=== PATIENT | female | born 2000 | race Caucasian/White ===

== ENCOUNTER 2020-03-30 07:44 | Outpatient (CLI) | payer OTHER, SELFPAY | END 2020-03-30 07:45 | disposition home or self-care (01) | PROVIDERS: PCP Family Medicine; Visit Provider Otolaryngology | DX: H93.19 Tinnitus, unspecified ear (principal) | CPT/HCPCS: 92557; 92567 ==

== ENCOUNTER 2020-05-13 00:53 | Outpatient (CLI) | payer OTHER, SELFPAY ==
[2020-05-13 18:32] LABS: SARS-CoV-2 RNA PCR Negative
== END 2020-05-13 00:54 | disposition home or self-care (01) ==
LOC: ANHCOVIDDT 00:53
PROVIDERS: PCP Family Medicine; Visit Provider Otolaryngology
DX: Z01.812 Encounter for preprocedural laboratory examination (principal); Z20.828 Contact with and (suspected) exposure to other viral communicable diseases
CPT/HCPCS: 87635; C9803; U0003

== ENCOUNTER 2020-05-16 00:26 | Day surgery (SDC) | payer OTHER, SELFPAY ==
[2020-05-01 13:40] VITALS: BMI 21.7
[2020-05-16] VITALS (8 sets, daily range): BP systolic 90–118; BP diastolic 40–72; PULSE 52–89; RESP 12–18; TEMP 36.1–36.3; O2SAT 100
--- NOTE | 2020-05-16 05:59 | PM.HPGS ---
History of Present Illness History of Present Illness Consent: Risks, benefits, and alternatives have been discussed and questions answered. Patient agrees to proceed with procedure. 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 is admitted for elective tympanoplasty on the left side Review of Systems Review of Systems: All systems reviewed & are unremarkable except as noted in HPI and below PMFSH Family History Family History Other Family history of kidney disease Family history of rheumatoid arthritis Family history of thyroid disease Hypertension Social History Social History Smoking status: Never smoker Second hand tobacco smoke exposure: No Alcohol intake: never Substance use: never Substance use type: does not use Living arrangements: with family Additional occupation/education comments: Student Gender identity (if verbalized by the patient): Female Spiritual care concerns: No Meds Home Medications and Allergies Home Medications Medication Instructions Recorded Confirmed Type No Home Medications 05/01/20 05/01/20 History Allergies Allergy/AdvReac Type Severity Reaction Status Date / Time No Known Allergies Allergy Verified 05/01/20 13:41 Assessment and Plan Additional Plan Plan is a left tympanoplasty
--- NOTE | 2020-05-16 05:59 | WPDHPUPDATE1 ---
History and Physical Update Update Date/Time: 05/16/20 05:59 History and Physical has been reviewed, including an updated exam of the patient. There are NO changes in the patient's condition. Risks, benefits, and alternatives have been discussed and questions answered. Patient agrees to proceed with procedure.
[2020-05-16] MEDS: LACTATED RINGERS 1,000 ML 30 ML IV CONT (07:30)
[2020-05-16] MEDS: ACETAMINOPHEN 500 MG TABLET 1000 MG PO (07:38)
--- NOTE | 2020-05-16 08:24 | WPDANESEPPF ---
Anes - Initial Pre Proc Eval Procedure: Operation Date: 05/16/20 09:00 Proposed Procedures p Left Tympanoplasty - Glen Quintanilla MD Date/Time: 05/16/20 08:24 Surgeon: Glen Quintanilla MD Pre Op Diagnosis: left TM perforation Patient Data Age: 19 Gender: F Height: 5 ft 8 in Weight: 63 kg Last Vital Signs Temp 36.3 C L 05/16/20 07:46 Pulse 89 05/16/20 07:46 Resp 16 05/16/20 07:46 BP 118/57 L 05/16/20 07:46 Pulse Ox 100 05/16/20 07:46 Allergies Allergy/AdvReac Type Severity Reaction Status Date / Time No Known Allergies Allergy Verified 05/16/20 07:20 Home Medications Medication Instructions Recorded Confirmed Type No Home Medications 05/01/20 05/16/20 History Patient hx anesthesia problems: none Family hx anesthesia problems: none PMFSH Surgical History Surgical History (Updated 05/16/20 @ 08:27 by Shane Briceno MD) H/O myringotomy Family History Family History Other Family history of kidney disease Family history of rheumatoid arthritis Family history of thyroid disease Hypertension Social History Social History Smoking status: Never smoker Second hand tobacco smoke exposure: No Alcohol intake: never Substance use: never Substance use type: does not use Living arrangements: with family Additional occupation/education comments: Student Gender identity (if verbalized by the patient): Female Spiritual care concerns: No Anes - Eval Final PreProcedure Day of Procedure 05/16/20 08:24 Patient weight: normal Heart: regular rate and rhythm Lungs: clear to auscultation Airway: Mallampati scale class II, special considerations poor opening and other (clicking and popping of TMJ) Neurological: alert and oriented Last oral intake: >/= 8 hours ASA classification: I Emergent: no Anesthetic plan: proceed Anesthesia type and monitoring: general LMA and standard monitoring Informed Consent: The patient's anesthetic plan and its attendant risks and benefits were discussed with the patient/family/POA. Questions were solicited and answers provided to the satisfaction of the patient/family/POA.
[2020-05-16] MEDS: LIDO 1%/EPINEPHRINE 1:100,000 20 ML VIAL 3 ML INFILTRATE (08:48)
[2020-05-16] MEDS: CIPROFLOXACIN HCL 0.3% OP SOLN 2.5 ML BTL 4 DROP EACH EAR (08:49)
[2020-05-16] MEDS: NEOMYCIN/POLYMYXIN B/PRAMOXINE 15 GM CREAM 1 APPLIC TOPICAL (08:50)
--- NOTE | 2020-05-16 09:18 | PM.PROC ---
Procedure Note - Detailed Date of procedure: 05/16/20 Pre-op diagnosis: left TM perforation Tympanoplasty Postoperative Instructions Dr. Quintanilla [facility] This is an information sheet to tell you some things to expect and some things not to expect when you leave the hospital after having ear surgery. Please follow any specific instructions Dr. Quintanilla has given you. 1. Expect some pain in the operated area after surgery. This should be no worse than the pain experienced at the hospital, however you have been given pain medication and if you experience pain, please use the medications as prescribed. 2. Expect some unsteadiness. This is transient and should be gone by the time of your postoperative visit to the doctor?s office. It should be no worse than the unsteadiness experienced while in the hospital. If you experience a marked increase in unsteadiness, or dizziness, you should contact the doctor?s office at once. 3. Expect some swelling of your eyelids on the operated side if a head dressing has been applied. This is normal and secondary to the head dressing and will go away with removal of the dressing in 24 hours. Please remove ear shield in 24 hours. 4. If you must sneeze, sneeze with the mouth open. Do not close the mouth and sneeze or pinch your nose and stifle the sneeze, as this may ?blow? the patch off the eardrum. 5. Take antibiotic given to you until it is entirely gone (if an antibiotic has been prescribed to you). 6. There may be some soiling of the bandage-do not be alarmed unless it soaks and dampens the outside! 7. Keep the operated ear dry. You may use a shower cap to keep water away from the ear. 8. Do not expect to hear out of the operated ear right away. Return of hearing may take up to 4-8 weeks. 9. Do not use any aspirin or aspirin containing products, No Advil, No Aleve, No Ibuprofen, No Motrin or Motrin type products for two weeks after surgery. 10. Do not undergo strenuous activity until your first postoperative visit to the doctor?s office and the doctor has stated that you may do so. 11. Follow up with Dr. Quintanilla in 1 week. Revised 01/27 Post-op diagnosis: same Procedure performed: Patient was prepped and draped fashion general anesthesia the tragus was injected xylocaine with Adrenalin and incision was made and a tragal perichondrial graft taken hemostasis was obtained with bipolar cautery and closed with 4 0 chromic the ear was inspected a small anterior perforation was noted packed with Surgicel the tragal perichondrium placed in underlay fashion the ledges of this perforation packed with Gelfoam patient awakened returned to recovery in good condition Description of procedure: Patient prepped and draped, the ear was inspected inspection revealed a [] perforation. The vascular strip was injected with xylocaine with adrenaline. Postauricular region was injected with xylocaine with adrenaline and incision was made and temporalis Parres fascia graft harvested closed with Monocryl and glue consent and the bed of the fascia graft was crushed and dried the ear was inspected edges of the perforation strip of squame with a small straight pick. The graft placed in an underlay fashion after packing the middle ear with Surgicel. The patient awakened returned to recovery in good condition Anesthesia:
[2020-05-16] MEDS: ONDANSETRON INJ 4 MG/2 ML VIAL IV PUSH (09:51)
== END 2020-05-16 11:20 | disposition home or self-care (01) ==
PROVIDERS: PCP Family Medicine; Visit Provider Otolaryngology
PROC: (CPT 69631; principal; 2020-05-16 09:00)
DX: H72.92 Unspecified perforation of tympanic membrane, left ear (principal)
CPT/HCPCS: 69631; 21235; 87635; A9270; C9803; J0171; J1100; J2250; J2405; J2704; J3010; J7120; U0003

== ENCOUNTER 2020-12-12 10:02 | Emergency (ER) | payer OTHER, SELFPAY ==
[2020-12-12 10:10] VITALS: BP 100/62; PULSE 106; RESP 16; TEMP 37.2; O2SAT 99
[2020-12-12 10:18] VITALS: BP 100/62; PULSE 106; RESP 16; TEMP 37.2; O2SAT 99
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
== END 2020-12-12 10:34 | disposition home or self-care (01) ==
PROVIDERS: Emergency Provider Nurse Practitioner; PCP Family Medicine
DX: H73.92 Unspecified disorder of tympanic membrane, left ear (principal); M54.2 Cervicalgia
CPT/HCPCS: 99213; G0463

== ENCOUNTER → 2022-09-18 08:14 | Outpatient (CLI) | payer OTHER, SELFPAY ==
--- NOTE | ~2022-09-18 | CT_ITS ---
EXAMINATION: CT brain wo/w con DATE: 09/18/2022 08:47 INDICATION: Vision changes. Migraine headache. TECHNIQUE: Computed tomography (CT) of the head was performed without and with 100 mL Omnipaque 350 i ntravenous contrast. The mA was adjusted according to patient size. Iterative reconstruction techniqu e was employed. The dose-length product was 1199.14 mGy-cm. COMPARISON: Head CT 01/13/2012 FINDINGS: There is no intracranial hemorrhage, acute infarction, or abnormal intracranial mass lesion . The ventricles are normal in size. The orbits are normal. There is mild mucosal thickening in the e thmoid sinuses. There is a small left mastoid effusion. IMPRESSION: 1. Normal brain. Reviewed, dictated and finalized at location A. IMPRESSION: 1. Normal brain.
== END ==
DX: H53.8 Other visual disturbances (principal)
CPT/HCPCS: 70470; Q9967